=== PATIENT | female | born 1970 | race Caucasian/White ===

== ENCOUNTER 2021-08-01 11:58 | Emergency (ER) | payer MEDICAID, SELFPAY ==
--- NOTE | ~2021-08-01 | US_ITS ---
EXAMINATION: US VENOUS ULTRASOUND WITH DOPPLER LOWER EXTREMITY, LEFT CLINICAL INFORMATION: Swelling, pain COMPARISON: None TECHNIQUE: Ultrasound of the deep veins is performed from the hip to the calf with compression sonography and color and pulse Doppler assessment. Spectral analysis with color-flow imaging is performed. FINDINGS: There is normal venous compression and respiratory variation and augmented flow. The visualized common femoral vein, superficial femoral vein, profunda femoral vein, popliteal vein, and the trifurcation region shows no evidence of deep venous thrombosis. There is a small fluid collection at the medial aspect of the left knee. If the patient's symptoms persist, followup ultrasound in 5 days 7 days might be of value to exclude proximal propagation from a non-visualized calf vein. US/US venous duplex LE IMPRESSION: No DVT demonstrated in the left lower extremity. Small fluid collection at the medial aspect of the left knee.
[2021-08-01 13:11] VITALS: BP 163/91; PULSE 66; RESP 18; TEMP 36.9; O2SAT 99; BMI 27.4
--- NOTE | 2021-08-01 13:29 | ED.EXTPRO ---
HPI - Extremity Problem General Chief complaint: Extremity Problem Stated complaint: QUEST DVT L LEG Time Seen by Provider: 08/01/21 12:03 Source: patient Mode of arrival: ambulatory Limitations: no limitations History of Present Illness HPI Narrative: 51-year-old female presenting with left posterior knee pain, tenderness, and swelling that started when she woke up this morning. She reports working out yesterday and not having the pain present. 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 She denies any recent injury. She woke up this morning with pain behind the left knee and very tender to touch. She is able to fully bend and extend the knee but is having some pain with ambulation. She noticed the skin behind her knee was a little bit red concerning her for blood clot. She came into the ER for further evaluation. She denies any shortness of breath or chest pain. She does have a history of superficial blood clots she reports. MD Complaint: extremity pain and extremity swelling Onset (ago): hour(s) Pain Consistency: constant Location: left and knee Severity scale (1-10): 6 Quality: aching Radiation: none Relieving factors: immobilization and rest Exacerbating factors: palpation Associated symptoms: denies other symptoms Related Data Previous Rx's Medication Instructions Recorded ibuprofen 600 mg tablet 600 mg PO Q8H PRN #20 tab 08/01/21 Allergies Allergy/AdvReac Type Severity Reaction Status Date / Time No Known Allergies Allergy Verified 08/01/21 13:10 Review of Systems Review of Systems: Constitutional: No Fever, No Chills Gastrointestinal: No Nausea, No Vomiting Musculoskeletal: + joint pain, + Myalgias Skin: + Skin Lesions, No rash Neuro: No Weakness, No Numbness Psych: + Anxiety/Panic Heme/Lymph: No Bruising, No Lymphadenopathy PMFSH Past Medical History Medical History (Updated 08/01/21 @ 13:40 by TRAE Boateng) Migraines Social History Social History Advance Directives: No Advance Directives Information Provided: No Patient : No Physical Exam Vital Signs: Vital Signs: Last Vital Signs Temp 98.4 F 08/01/21 13:11 Pulse 66 08/01/21 13:11 Resp 18 08/01/21 13:11 BP 163/91 H 08/01/21 13:11 Pulse Ox 99 08/01/21 13:11 Body Mass Index 27.4 Appearance: Alert. Oriented X3. No acute distress. HEENT: normal inspection CVS: Normal heart rate and rhythm. Pulses normal. Respiratory: No respiratory distress. Skin: Skin warm and dry. Normal skin color. Normal skin turgor. No rashes. Extremities: Normal appearance of the left anterior knee. Full active and passive range of motion. There is tenderness in the popliteal fossa medially. Skin is slightly erythematous with tenderness, no warmth. Neurovascularly intact distally leg is warm and well perfused. Neuro: Oriented X 3. No motor deficit. No sensory deficit. Course Course Course Narrative: 51-year-old female presenting with left posterior knee pain for 1 day. She has an area of tenderness with slight erythema in the popliteal fossa. Lower extremity Dopplers did not show any evidence of DVT. It did show a small fluid collection in the medial aspect of the left knee, this is most consistent with a Benavides cyst. Will apply Kin wrap for compression and support. We discussed conservative management as well as following up with her orthopedic and primary care doctors. Work note provided. She was advised to come back to the ER or call her doctor if no improvement in her symptoms with conservative management. Critical Care Time Critical Care Time Critical Care Time: No Discharge Plan Discharge Clinical Impression: Benavides's cyst of knee Qualifiers: Laterality: left Qualified Code(s): M71.22 - Synovial cyst of popliteal space [Benavides], left knee Patient Disposition: Home, Self-Care Instructions: Bakers Cyst (ED) Additional Instructions: Your ultrasound today did not show any blood clots. It showed a small fluid collection which is most consistent with a Benavides cyst, see information provided. Recommend wearing Kin wrap for compression and support. Stay off of your leg and elevate as much as possible next 48 hours. Take prescribed ibuprofen as needed for pain. Follow-up with your orthopedic for further evaluation. If you have worsening symptoms despite these conservative measures see her doctor or come back to the ER for re-evaluation. Prescriptions: New ibuprofen 600 mg tablet 600 mg PO Q8H PRN (Reason: pain) Qty: 20 RF: 0 Stand Alone Forms: Work/School Release
== END 2021-08-01 13:49 | disposition home or self-care (01) ==
PROVIDERS: Emergency Provider Emergency Medicine; PCP Internal Medicine
DX: M71.22 Synovial cyst of popliteal space [Baker], left knee (principal); M79.605 Pain in left leg
CPT/HCPCS: 93971; 99283; 99284

== ENCOUNTER 2023-05-17 14:44 | Emergency (ER) | payer OTHER, SELFPAY ==
--- NOTE | ~2023-05-17 | CT_ITS ---
EXAMINATION: CT ABDOMEN AND PELVIS WITHOUT CONTRAST CLINICAL INFORMATION: Right lower quadrant abdominal pain COMPARISON: None available. TECHNIQUE: Multidetector volumetric imaging was performed from the superior aspect of the liver through the pubic symphysis. Sagittal and coronal reformatted images were obtained on the technologist's workstation. This CT examination was performed using dose optimization techniques as appropriate, variously including the following: *Automated exposure control *Adjustment of mA and/or kV according to patient size (this includes techniques or standardized protocols for targeted exams where dose is matched to indication/reason for exam; i.e. extremities or head) *Use of iterative reconstruction technique DLP: 670 mGy-cm FINDINGS: LUNG BASES: There is a 4 mm perifissural rounded nodule in the right middle lobe sitting on top of the minor fissure (4:21). A tiny 2 mm pleural-based right lower lobe nodule (4:84). No pleural effusions. LIVER, GALLBLADDER, AND BILIARY TREE: The liver is enlarged measuring 19.3 cm in cephalocaudad dimension. No focal hepatic lesion or biliary ductal dilatation is present. Status post cholecystectomy. PANCREAS: Unremarkable. SPLEEN: Unremarkable. ADRENAL GLANDS: Unremarkable. KIDNEYS AND URETERS: The kidneys are normal in size, shape, and attenuation. No hydronephrosis, hydroureter, or calculi seen. No perinephric stranding. BLADDER: Unremarkable. GASTROINTESTINAL TRACT: The small and large bowel are unremarkable. The appendix is unremarkable. ABDOMINAL WALL: No significant hernia is appreciated. Tiny left inguinal hernia seen containing only fat. LYMPH NODES: Normal. VASCULAR: Unremarkable. PELVIC VISCERA: Unremarkable. OSSEOUS STRUCTURES: Mild degenerative changes are present in the spine. There is grade 1 anterolisthesis of L4 upon L5. No bony destructive lesions. CT/CT abdomen pelvis wo IV con IMPRESSION: 1. A cause for the patient's right lower quadrant pain has not been found. The appendix is normal. 2. Incidental note made of mild hepatomegaly, cholecystectomy and degenerative changes in the spine with grade 1 anterolisthesis of L4 upon L5. 3. Incidental note made of 4 mm right middle lobe lung nodule and 2 mm right lower lobe nodule. 2017 Fleischner Society Recommendations for Lung Nodule(s): Follow up based on size (average of long- and short-axis diameters). Use most suspicious nodule for followup. Multiple Solid lung nodules < 6 mm: Follow up management based on most suspicious nodule. In a low-risk patient, no routine follow-up imaging is recommended. In a high-risk patient, a non-contrast Chest CT at 12 months is optional. If performed and the nodule is stable at 12 months, no further follow up is recommended. These guidelines do not apply to patients younger than 35 years, immunocompromised patients, and patients with cancer. F/u in patients with significant comorbidities as clinically warranted. For lung cancer screening, adhere to Lung-RADS guidelines. Reference: Radiology. 2017 [place]; 284(1):228-243
[2023-05-17 15:25] VITALS: BP 147/92; PULSE 72; RESP 18; TEMP 36.9; O2SAT 99; BMI 29.1
--- NOTE | 2023-05-17 15:25 | ED.ABDPAIN ---
HPI - Abdominal Pain General Chief Complaint: Abdominal Pain Stated Complaint: Lower abd pain Time Seen by Provider: 05/17/23 16:05 Source: patient, RN notes reviewed and old records reviewed Mode of arrival: ambulatory Limitations: no limitations History of Present Illness HPI narrative: 53-year-old female presents for evaluation of lower abdominal pain. Patient reports that she has had pain for the last 4 or 5 days. Her pain is mostly in the right lower abdomen She had associated diarrhea yesterday. Denies any black or bloody stool Her pain is currently a 7/10. Denies any fevers or chills She has a past surgical history that includes a right inguinal hernia repair, hysterectomy, cholecystectomy Related Data Previous Rx's Medication Instructions Recorded ibuprofen 600 mg tablet 600 mg PO Q8H PRN pain #20 tabs 08/01/21 methocarbamol 500 mg tablet 500 mg PO QID muscle spasm #15 tabs 05/17/23 Allergies Allergy/AdvReac Type Severity Reaction Status Date / Time morphine AdvReac Headache Verified 05/17/23 15:25 Review of Systems Constitutional: Denies chills, Denies fever(s), Denies headache(s) and Denies malaise Denies headache(s) Cardiovascular: Denies chest pain Respiratory: Denies cough Gastrointestinal: Reports abdominal pain, Denies melena, Denies hematochezia, Reports diarrhea, Denies nausea and Denies vomiting Genitourinary: Denies dysuria and Reports urinary hesitancy Musculoskeletal: Reports back pain Skin/Breast: Denies erythema Denies headache(s) [facility] Past Medical History Medical History (Updated 05/17/23 @ 20:23 by Pradeep Steel) Migraines Social History Social History Advance Directives: No Advance Directives Information Provided: No Physical Exam ED Vital Signs: Vital Signs - 24 hr 05/17/23 15:25 05/17/23 19:54 Temperature 98.4 F 98.3 F Pulse Rate 72 63 Respiratory Rate 18 18 Blood Pressure 147/92 H 129/89 Pulse Oximetry 99 97 Oxygen Delivery Method Room Air BMI result Body Mass Index 29.1 Const General: healthy appearing, comfortable, no acute distress, alert and awake Nutritional Appearance: well nourished Orientation/consciousness: patient oriented x3 HENMT Head: Yes normocephalic and Yes atraumatic Eyes Eyelids: Yes eyelids normal Conjunctivae: conjunctivae normal Sclerae: sclerae normal Corneas: corneas normal Pupils: Equal, round and reactive pupils present EOM: EOMs intact bilaterally Neck Neck: Yes full ROM Resp Effort & Inspection: normal respiratory effort, able to speak in complete sentences and not labored GI Inspection: No distended Palpation (GI): Soft to palpation, not firm, Tenderness to palpation present (GI) in the RLQ, Guarding due to palpation present (GI) and not rigid Auscultation: normoactive bowel sounds Skin General skin exam: no rashes or lesions noted and elasticity normal Neuro General: patient oriented x3 Cranial nerves: Yes Equal, round and reactive pupils present and Yes Bilaterally intact EOM present Cognition (Neuro): normal cognition Extrem Other: Moving all extremities well without any obvious deformities Course Course Course Narrative: RME - 53 y/o female with history of migraines, hx cholecystectomy, hx right inguinal hernia repair, hx hysterectomy who is presenting to the ER for evaluation of RLQ abdominal pain for the last 5 days, progressively worsening. Has shooting pains down into the right pelvic area. +diarrhea. No fever, chills, vomiting. Increased urinary frequency with incomplete bladder emptying sensation. +tenderness at McBurney's point on exam. Plan: labs and CT scan Reevaluation(s) Reevaluation #1: Discussed patient's workup with her. She will be discharged with methocarbamol for her pain. Time: 20:21 Medical Decision Making Medical Decision Making [facility] Narrative: A 3-year-old female presents for evaluation of right lower quadrant abdominal pain/tenderness on exam. She does have rebound tenderness with guarding. No abdominal distention. Her abdomen remained soft. Her given her level discomfort with a CT scan of the abdomen pelvis. Plan for labs, UA as well. Less likely be obstructive pathology is the patient has had some bowel movements over last couple of days Differential Diagnosis Differential Diagnoses: The differential diagnosis associated with the presentation includes Acute appendicitis Obstructive uropathy Small bowel obstruction Ileus Constipation Muscle strain Lab Data [facility] Lab Attestation statement: I reviewed the patient's lab results. Steatosis with a white count of 6.1, and no left shift. no significant anemia. Platelet count 200 sodium normal at 140, potassium normal at 4.5. Chloride normal at 107 CO2 slightly low at 21, BUN of 17 and a creatinine of 0.72 05/17/23 15:36 05/17/23 15:36 Labs: Lab Results 05/17/23 05/17/23 05/17/23 Range/Units 15:36 15:36 20:01 WBC 6.1 (4.8-10.8) X10*3/uL RBC 4.50 (4.20-5.50) X10*6/uL Hgb 14.2 (12.0-16.0) g/dl Hct 41.2 (37.0-47.0) % MCV 91.6 (80.0-98.0) fL MCH 31.6 (27.0-33.0) pg MCHC 34.5 (31.0-35.0) g/dl RDW 12.9 (11.0-16.0) % Plt Count 230 (160-400) X10*3/uL MPV 9.9 (9.4-12.3) fL Immature Gran % (Auto) 0.2 (0.0-0.4) % Neut % (Auto) 58.3 (45-73) % Lymph % (Auto) 29.3 (20-40) % Cassia % (Auto) 8.7 (2-11) % Eos % (Auto) 2.3 (0-4) % Baso % (Auto) 1.2 (0-2) % Lymph # (Auto) 1.8 (1.2-4.9) X10*3/uL Cassia # (Auto) 0.5 (0.1-1.2) X10*3/uL Eos # (Auto) 0.1 (0.0-0.4) X10*3/uL Baso # (Auto) 0.1 (0.0-0.2) X10*3/uL Abs Immat Gran (auto) 0.01 (0.00-0.03) X10*3/uL Absolute Neuts (auto) 3.5 (2.0-8.3) x10*3/uL Absolute Nucleated RBC 0.000 (0.0-0.012) X10*3/uL Nucleated RBC % (auto) 0.0 (0.0-0.2) /100WBC Sodium 140 (135-145) mmol/L Potassium 4.5 (3.3-5.1) mmol/L Chloride 107 (96-108) mmol/L Carbon Dioxide 21 L (22-29) mmol/L Anion Gap 17 (12-20) BUN 17 H (9-16) mg/dL Creatinine 0.72 (0.5-1.4) mg/dL Estim Creat Clear Calc 96.2 Estimated GFR > 60 Random Glucose 96 (60-115) mg/dL Calcium 10.2 (8.4-10.2) mg/dL Magnesium 1.9 (1.6-2.6) mg/dL Total Bilirubin 0.6 (0.0-1.0) mg/dL Direct Bilirubin 0.2 (0.0-0.5) mg/dL AST 21 (5-31) U/L ALT 17 (0-31) U/L Alkaline Phosphatase 70 (39-117) U/L Total Protein 7.3 (6.5-8.0) g/dL Albumin 4.2 (3.5-5.0) g/dL Urine Color Yellow Urine Appearance Clear Urine pH 6.0 (5.0-9.0) Ur Specific [place] <= 1.005 (1.005-1.025) Urine Protein Negative (Neg-Trace) mg/dL Urine Glucose (UA) Negative (Negative) mg/dL Urine Ketones Negative (Negative) mg/dL Urine Blood Negative (Negative) Urine Nitrite Negative (Negative) Ur Leukocyte Esterase Negative (Negative) Radiology Impression Discussion of test interpretation with radiology: I have reviewed the radiologist's reading. Radiologist Impression: No acute findings to explain the patient's pain Medications Administered Discontinued Medications Generic Name Dose Route Start Last Admin Trade Name Freq PRN Reason Stop Dose Admin Sodium Chloride 1,000 mls @ 999 mls/hr 05/17/23 16:30 05/17/23 18:04 Ns IV 05/17/23 17:30 Infused .Q1H1M GLO Infusion Ketorolac Tromethamine 30 mg 05/17/23 16:25 05/17/23 16:53 Ketorolac Tromethamine 30 Mg/Ml Vial IVPUSH 05/17/23 16:26 30 mg ONCE ONE Administration Methocarbamol 750 mg 05/17/23 19:48 05/17/23 19:58 Methocarbamol 750 Mg Tablet PO 05/17/23 19:49 750 mg ONCE ONE Administration Ondansetron HCl 4 mg 05/17/23 16:25 05/17/23 16:53 Ondansetron Hcl 4 Mg/2 Ml Vial IVPUSH 05/17/23 16:26 4 mg ONCE ONE Administration Discharge Plan Discharge Clinical Impression: Abdominal pain, right lower quadrant Patient Disposition: Home, Self-Care Instructions: Abdominal Pain (ED) Additional Instructions: Your workup in the emergency department today was reassuring. Includes your blood work, CT scan. There was no significant cause of your abdominal pain identified. Her pain may be related to a muscle strain Your urine sample was clear as well Use ibuprofen/Tylenol as needed for pain Follow-up with your primary doctor You may use methocarbamol as needed for muscle spasm This may make you sleepy, do not drink alcohol or drive after taking it Prescriptions: New methocarbamol 500 mg tablet 500 mg PO QID Qty: 15 0RF No Action ibuprofen 600 mg tablet 600 mg PO Q8H PRN (Reason: pain) Qty: 20 0RF
[2023-05-17 16:11] LABS: MANUAL DIFF FLAG NO
[2023-05-17 16:33] LABS: Alanine Aminotransferase 17 U/L (0-31); Albumin Level 4.2 g/dL (3.5-5.0); Alkaline Phosphatase 70 U/L (39-117); Anion Gap 17 (12-20); Aspartate Amino Transferase 21 U/L (5-31); Bilirubin Direct 0.2 mg/dL (0.0-0.5); Bilirubin Total 0.6 mg/dL (0.0-1.0); Blood Urea Nitrogen 17 mg/dL (9-16); Calcium 10.2 mg/dL (8.4-10.2); Carbon Dioxide 21 mmol/L (22-29); Chloride 107 mmol/L (96-108); Creatinine Clr Calc Pharmacy 96.2; Estimated Glomerular Filt Rate > 60; Glucose Random 96 mg/dL (60-115); Magnesium 1.9 mg/dL (1.6-2.6); Potassium 4.5 mmol/L (3.3-5.1); Sodium 140 mmol/L (135-145); Total Protein 7.3 g/dL (6.5-8.0)
[2023-05-17 16:35] LABS: Basophils Absolute Auto 0.1 X10*3/uL (0.0-0.2); Basophils Percent Auto 1.2 % (0-2); Eosinophils Absolute Auto 0.1 X10*3/uL (0.0-0.4); Eosinophils Percent Auto 2.3 % (0-4); Hematocrit 41.2 % (37.0-47.0); Hemoglobin 14.2 g/dl (12.0-16.0); Imm Gran Abs Auto 0.01 X10*3/uL (0.00-0.03); Imm Gran Pct Auto 0.2 % (0.0-0.4); Lymphocytes Absolute Auto 1.8 X10*3/uL (1.2-4.9); Lymphocytes Percent Auto 29.3 % (20-40); Mean Corpuscular HGB Conc 34.5 g/dl (31.0-35.0); Mean Corpuscular Hemoglobin 31.6 pg (27.0-33.0); Mean Corpuscular Volume 91.6 fL (80.0-98.0); Mean Platelet Volume 9.9 fL (9.4-12.3); Monocytes Absolute Auto 0.5 X10*3/uL (0.1-1.2); Monocytes Percent Auto 8.7 % (2-11); Neutrophils Absolute Auto 3.5 x10*3/uL (2.0-8.3); Neutrophils Percent Auto 58.3 % (45-73); Platelet Count 230 X10*3/uL (160-400); Red Cell Distribution Width 12.9 % (11.0-16.0); White Blood Count 6.1 X10*3/uL (4.8-10.8)
[2023-05-17] MEDS: ondansetron HCL 4 MG/2 ML VIAL IVPUSH (16:53)
[2023-05-17] MEDS: Ketorolac Tromethamine 30 MG/ML VIAL IVPUSH (16:53)
[2023-05-17] MEDS: 0.9 % Sodium Chloride 1,000 ML 999 ML IV (16:54)
--- NOTE | 2023-05-17 18:52 | PC.NURSE ---
patient resting in bed, respirations equal and unlabored. pt awaiting test results for dispo
[2023-05-17 19:54] VITALS: BP 129/89; PULSE 63; RESP 18; TEMP 36.8; O2SAT 97
[2023-05-17] MEDS: methocarbamoL 750 MG TABLET PO (19:58)
[2023-05-17 20:11] LABS: Appearance Urine Clear; Color Urine Yellow; Glucose Urine UA Negative (Negative); Leukocyte Esterase Urine Negative (Negative); Nitrite Urine Negative (Negative); Specific Gravity - Urine <= 1.005 (1.005-1.025); Urine Blood Negative (Negative); Urine Ketones Negative (Negative); Urine Protein Negative (Neg-Trace)
== END 2023-05-17 20:47 | disposition home or self-care (01) ==
PROVIDERS: Physician Assistant; Emergency Provider Internal Medicine; PCP Internal Medicine
DX: R10.31 Right lower quadrant pain (principal); Z90.710 Acquired absence of both cervix and uterus; Z90.49 Acquired absence of other specified parts of digestive tract
CPT/HCPCS: 36415; 74176; 80048; 80076; 81003; 83735; 85025; 96361; 96374; 96375; 99284; 99285; J1885; J2405

== ENCOUNTER 2025-03-12 12:34 | Emergency (ER) | payer OTHER, SELFPAY ==
--- NOTE | ~2025-03-12 | CT_ITS ---
CLINICAL HISTORY: L lower rib pain s p fall CT chest without contrast Comparison: None Findings: The heart is normal size. The visualized thyroid and mediastinum are unremarkable. No consolidation or effusion. The visualized upper abdomen is unremarkable. No acute fractures. IMPRESSION: 1. No acute disease of the chest. No acute fractures. This document has been electronically signed by: Ab Childers MD on 03/12/2025 20:23:11
--- NOTE | ~2025-03-12 | XR_ITS ---
EXAMINATION: XR RIBS, LEFT CLINICAL INFORMATION: L lower rib/back pain COMPARISON: None available. TECHNIQUE: PA view of the chest, and 3 views of the left ribs were obtained. FINDINGS: Lungs are clear. No consolidation, pneumothorax, or pleural effusion. The cardiomediastinal silhouette and pulmonary vasculature are normal. Osseous structures demonstrate no definitive rib fracture or focal rib abnormality. Mild scoliosis and degenerative spondylosis of the spine. Surgical anchors in the right humeral head. Cholecystectomy clips noted. XR/XR ribs LT min 3V w CXR1V IMPRESSION: 1. No active pulmonary disease. 2. No acute or focal rib abnormalities identified. Electronically signed by: Iron Vela MD 03/12/2025 01:59 PM EDT
--- NOTE | ~2025-03-12 | CT_ITS ---
CLINICAL HISTORY: LUQ abd pain. L lower rib pain CT abdomen and pelvis without contrast Comparison: CT/AL/SR - CT ABDOMEN PELVIS WO IV CON - 05/17/23 17:01 EDT Findings: No consolidation or effusion. Status post cholecystectomy. Solid organs are within normal limits. No bowel obstruction, pneumoperitoneum, or pneumatosis. Pelvic contents unremarkable. Normal appendix. The bones are intact. Mild multilevel spondylosis of the thoracolumbar spine with grade 1 anterolisthesis of L5 on S1 on degenerative basis. Transitional anatomy with 6 lumbar type vertebrae likely lumbarization of S1. IMPRESSION: No acute findings. Status post cholecystectomy. No acute fracture. Mild multilevel spondylosis with grade 1 anterolisthesis of L5. 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 This document has been electronically signed by: Ab Childers MD on 03/12/2025 20:31:30
[2025-03-12 13:09] VITALS: BP 152/98; PULSE 75; RESP 18; TEMP 36.5; O2SAT 99; BMI 61.6
--- NOTE | 2025-03-12 13:09 | ED_ITS ---
HPI - Back Pain/Injury General Chief Complaint: Back Pain/Injury Stated Complaint: back pain post fall 1 week ago Time Seen by Provider: 03/12/25 18:09 Source: patient, RN notes reviewed and old records reviewed Mode of arrival: ambulatory History of Present Illness ED Provider: Mary Denny PA-C HPI Narrative: [id number] with no significant PMHx presenting to the ED c/o left lower rib/side pain s/p mechanical trip & fall off [place] sto[place] 1.5 weeks ago. Admits pain is worse with deep breathing & movement. Denies sx prior to fall, denies head trauma/LOC or AC use, SOB, N/V, hematuria/dysuria Related Data Previous Rx's ?Medication ?Instructions ?Recorded ibuprofen 600 mg tablet 600 mg PO Q8H PRN pain #20 tabs 08/01/21 methocarbamol 500 mg tablet 500 mg PO QID muscle spasm #15 tabs 05/17/23 acetaminophen 500 mg tablet 500 mg PO Q6H PRN fever or pain 03/12/25 (Tylenol Extra Strength) #14 tabs cyclobenzaprine 5 mg tablet 5 mg PO Q8H PRN pain (scale score 03/12/25 7-10) 5 days #14 tabs lidocaine 5 % topical patch 1 patch topical DAILY PRN pain #30 03/12/25 (Lidoderm) ea naproxen 500 mg tablet 500 mg PO BID PRN pain 10 days #20 03/12/25 tabs Allergies Allergy/AdvReac Type Severity Reaction Status Date / Time morphine AdvReac Headache Verified 03/12/25 13:09 Review of Systems 2 Review of Systems: Yes all other systems are reviewed and are negative Constitutional: Constitutional: Reports as per HPI [facility] Past Medical History Attestation statement: The following information was validated with the patient. Source: old records reviewed Medical History Migraines Social History Social History Alcohol intake: never Smoked in Last 30 Days: No Use of substances other than those prescribed or required for medical reasons: No Advance Directives: No Advance Directives Information Provided: Yes Patient : No Physical Exam 2 Vital Signs: Vital Signs: Last Vital Signs Temp 98.3 F 03/12/25 21:14 Pulse 56 03/12/25 21:14 Resp 18 03/12/25 21:14 BP 156/91 H 03/12/25 21:14 Pulse Ox 99 03/12/25 19:21 O2 Del Method Room Air 03/12/25 19:21 BMI result Body Mass Index 61.6 Const: General: cooperative, healthy appearing and no acute distress O rientation/consciousness: patient oriented x3 Limitations: no limitations HEENT: Head: Yes normal to inspection and Yes atraumatic Ears: hearing grossly normal bilaterally General nose exam: Normal external nose present Face and sinus: Yes normal facial exam Eyes: General: appearance normal, both eyes and all related structures EOM: EOMs intact bilaterally Neck: Neck: Yes normal visual inspection and Yes no meningeal signs Chest: Other: +left lower posterior lateral reproducib le rib ttp. No erythema/ecchymosis/flail chest Chest palpation & inspection: normal inspection of the chest, no crepitus and tenderness Resp: Effort & Inspection: normal respiratory effort and no respiratory distress Auscultation: clear to auscultation bilaterally Cardio: Rate: regular rate Heart sounds: S1 normal heart sound present and S2 normal heart sound present GI: Inspection: Yes normal to inspection Palpation (GI): Soft to palpation, Tenderness to palpation present (GI) in the LUQ; with no rebound tenderness, no guarding and not rigid : General: Yes no CVA tenderness Back/Spine/Pelvis: Other: No midline cervical/thoracic/lumbar spinous tenderness/step-off or deformity Back: no CVA tenderness Skin: Rashes: no rashes Wounds: no wounds Neuro: General: patient oriented x3, tone normal, moves all extremities and no meningeal signs Cranial nerves: Yes CN's II-XII intact bilaterally Gait exam (Neuro): Normal gait present Extrem: General: Yes normal to inspection Course Course Course Narrative: This is a Rapid Medical Exam performed in triage by Mary Denny PA-C. Full HPI, ROS and PE to be performed by primary ED provider. 55 yo F presenting to the ED c/o left low/mid back pain s/p fall off front stoop 1.5wks ago, denies head trauma/loc, denies AC use. pain worse with moving/breathing. denies urinary sx PE: +reproducible L lower posterior lateral rib ttp. no flail chest Plan: XR, pain control 1843--XR ribs LT min 3V w CXR1V IMPRESSION: 1. No active pulmonary disease. 2. No acute or focal rib abnormalities identified. -Labs reassuring CT abdomen pelvis wo IV con IMPRESSION: No acute findings. Status post cholecystectomy. No acute fracture. Mild multilevel spondylosis with grade 1 anterolisthesis of L5. 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 CT chest wo IV con IMPRESSION: 1. No acute disease of the chest. No acute fractures. > reports mild symptomatic improvement after medications given in the ED -2099--ED care transferred to [facility] pending UA. Anticipated dispo Results discussed with patient including worrisome signs and symptoms and strict return precautions, and when to return to the emergency department. They verbalized understanding and feel safe for discharge at this time. Medications Administered Discontinued Medications Generic Name Dose Route Start Last Admin Trade Name Freq PRN Reason Stop Dose Admin Fentanyl 25 mcg 03/12/25 18:15 03/12/25 18:40 Fentanyl Citrate/Pf 100 Mcg/2 Ml Vial IVPUSH 03/12/25 18:16 25 mcg ONCE ONE Administration Protocol Acetaminophen 1,000 mg in 100 mls @ 400 mls/hr 03/12/25 18:15 03/12/25 18:55 Ofirmev IV 03/12/25 18:29 Infused ONCE ONE Infusion Medical Decision Making Medical Decision Making MDM Narrative: [id number]-female with no significant PMHx presenting to the ED c/o left lower rib/side pain s/p mechanical trip & fall off front stoop 1.5 weeks ago. Admits pain is worse with deep breathing & movement. On exam vital signs stable, NAD, appears uncomfortable, reproducible left-sided lower posterior lateral rib tenderness to palpation. No flail chest, rash, or ecchymosis/erythema. Abdomen is soft with LUQ tenderness. Concern for rib fracture vs contusion vs splenic injury/intra-abdominal injury. Lower suspicion for ACS or dissection or PE Plan: Rib x-ray, labs, UA, CT chest/abdomen/pelvis. Patient allergic to IV contrast Please refer to course for remaining clinical decision making, interpretation of labs/imaging results, and discussions with consultants and/or family members. Differential Diagnosis Differential Diagnoses: The differential diagnosis associated with the presentation includes As above Admission/Observation Consideration of admission/observation: Escalation of care including admission/observation considered Lab Data MDM Lab Attestation statement: I reviewed the patient's lab results. 03/12/25 18:26 03/12/25 18:50 Labs: Lab Results 03/12/25 03/12/25 03/12/25 Range/Units 18:26 18:50 20:54 WBC 6.5 (4.8-10.8) X10*3/uL RBC 4.59 (4.20-5.50) X10*6/uL Hgb 14.8 (12.0-16.0) g/dl Hct 42.5 (37.0-47.0) % MCV 92.6 (80.0-98.0) fL MCH 32.2 (27.0-33.0) pg MCHC 34.8 (31.0-35.0) g/dl RDW 14.1 (11.0-16.0) % Plt Count 188 (160-400) X10*3/uL MPV 9.2 L (9.4-12.3) fL Immature Gran % (Auto) 0.2 (0.0-0.4) % Neut % (Auto) 63.0 (45-73) % Lymph % (Auto) 28.1 (20-40) % [place] % (Auto) 5.9 (2-11) % Eos % (Auto) 1.7 (0-4) % Baso % (Auto) 1.1 (0-2) % Lymph # (Auto) 1.8 (1.2-4.9) X10*3/uL [place] # (Auto) 0.4 (0.1-1.2) X10*3/uL Eos # (Auto) 0.1 (0.0-0.4) X10*3/uL Baso # (Auto) 0.1 (0.0-0.2) X10*3/uL Abs Immat Gran (auto) 0.01 (0.00-0.03) X10*3/uL Absolute Neuts (auto) 4.1 (2.0-8.3) x10*3/uL Absolute Nucleated RBC 0.000 (0.0-0.012) X10*3/uL Nucleated RBC % (auto) 0.0 (0.0-0.2) /100WBC Sodium 137 (135-145) mmol/L Potassium 3.6 (3.3-5.1) mmol/L Chloride 106 (96-108) mmol/L Carbon Dioxide 24 (22-29) mmol/L Anion Gap 11 L (12-20) BUN 16 (9-16) mg/dL Creatinine 0.60 (0.5-1.4) mg/dL Estim Creat Clear Calc 173.6 Estimated GFR > 60 Random Glucose 84 (60-115) mg/dL Calcium 8.7 D (8.4-10.2) mg/dL Magnesium 2.0 (1.6-2.6) mg/dL Total Bilirubin 0.5 (0.0-1.0) mg/dL Direct Bilirubin 0.2 (0.0-0.5) mg/dL AST 18 (5-31) U/L ALT 17 (0-31) U/L Alkaline Phosphatase 66 (39-117) U/L Total Protein 6.3 L (6.5-8.0) g/dL Albumin 3.8 (3.5-5.0) g/dL Lipase 26 (8-78) U/L Urine Color Yellow Urine Appearance Cloudy Urine pH 7.0 (5.0-9.0) Ur Specific [place] 1.015 (1.005-1.025) Urine Protein Negative (Neg-Trace) mg/dL Urine Glucose (UA) Negative (Negative) mg/dL Urine Ketones Negative (Negative) mg/dL Urine Blood Negative (Negative) Urine Nitrite Negative (Negative) Ur Leukocyte Esterase Negative (Negative) Independent Interpretation I performed an independent interpretation of an: Plain X-Ray and CT Scan Radiology Impression Discussion of test interpretation with radiology: I have reviewed the radiologist's reading. External Record Review External record reviewed: Inpatient record, Office record, Outpatient record, Prior outpatient labs, Prior outpatient radiology, Primary care record and Outside ED record Tests considered The following testing was considered but not selected: As above Prescription Management I considered prescription management with: Pain Medication Chronic Conditions Patient?s care impacted by: Other Social Determinants Patient?s care significantly limited by Social Determinants of Health including: Other Social Determinant of Health Discharge Plan Discharge Clinical Impression: Contusion of rib Patient Disposition: Home, Self-Care Instructions: Rib Contusion (ED) Additional Instructions: Your blood work and CAT scans are reassuring. You likely bruised your ribs Ice painful areas Flexeril is a muscle relaxer, take at night as it makes you drowsy, do not drive, drink alcohol, or operate machinery while taking it Naproxen as an anti-inflammatory / pain medication, take with food Lidoderm patches are numbing patches, apply to painful area In addition take Tylenol at home If symptoms persist or worsen, pain becomes unbearable, you developed urinary retention or incontinence, or weakness return to the ED Prescriptions: New acetaminophen [Tylenol Extra Strength] 500 mg tablet 500 mg PO Q6H PRN (Reason: fever or pain) Qty: 14 0RF lidocaine [Lidoderm] 5 % adhesive patch,medicated 1 patch topical DAILY MDD remove after 12 hours PRN (Reason: pain) Qty: 30 0RF Rx Instructions: leave on most painful area for up to 12 hrs naproxen 500 mg tablet 500 mg PO BID PRN (Reason: pain) 10 Days Qty: 20 0RF cyclobenzaprine 5 mg tablet 5 mg PO Q8H PRN (Reason: pain (scale score 7-10)) 5 Days Qty: 14 0RF No Action ibuprofen 600 mg tablet 600 mg PO Q8H PRN (Reason: pain) Qty: 20 0RF methocarbamol 500 mg tablet 500 mg PO QID Qty: 15 0RF Referrals: Kavitha Messina MD [Primary Care Provider] - 3 days Interventions: ED Discharge Assessment Last Done: 03/12/25 21:14 Discharge Date/Time: 03/12/25 21:15 Print Language: Martiniquais
[2025-03-12 18:32] LABS: MANUAL DIFF FLAG NO
[2025-03-12] MEDS: Acetaminophen 1,000 MG/100 ML PIGGYBACK 400 MG IV (18:40)
[2025-03-12] MEDS: fentaNYL citrate/PF 100 MCG/2 ML VIAL 25 MCG IVPUSH (18:40)
[2025-03-12 18:56] LABS: Basophils Absolute Auto 0.1 X10*3/uL (0.0-0.2); Basophils Percent Auto 1.1 % (0-2); Eosinophils Absolute Auto 0.1 X10*3/uL (0.0-0.4); Eosinophils Percent Auto 1.7 % (0-4); Hematocrit 42.5 % (37.0-47.0); Hemoglobin 14.8 g/dl (12.0-16.0); Imm Gran Abs Auto 0.01 X10*3/uL (0.00-0.03); Imm Gran Pct Auto 0.2 % (0.0-0.4); Lymphocytes Absolute Auto 1.8 X10*3/uL (1.2-4.9); Lymphocytes Percent Auto 28.1 % (20-40); Mean Corpuscular HGB Conc 34.8 g/dl (31.0-35.0); Mean Corpuscular Hemoglobin 32.2 pg (27.0-33.0); Mean Corpuscular Volume 92.6 fL (80.0-98.0); Mean Platelet Volume 9.2 fL (9.4-12.3); Monocytes Absolute Auto 0.4 X10*3/uL (0.1-1.2); Monocytes Percent Auto 5.9 % (2-11); Neutrophils Absolute Auto 4.1 x10*3/uL (2.0-8.3); Platelet Count 188 X10*3/uL (160-400); Red Blood Count 4.59 X10*6/uL (4.20-5.50); Red Cell Distribution Width 14.1 % (11.0-16.0); White Blood Count 6.5 X10*3/uL (4.8-10.8)
[2025-03-12 19:08] LABS: Alanine Aminotransferase 17 U/L (0-31); Albumin Level 3.8 g/dL (3.5-5.0); Alkaline Phosphatase 66 U/L (39-117); Anion Gap 11 (12-20); Aspartate Amino Transferase 18 U/L (5-31); Bilirubin Direct 0.2 mg/dL (0.0-0.5); Bilirubin Total 0.5 mg/dL (0.0-1.0); Blood Urea Nitrogen 16 mg/dL (9-16); Calcium 8.7 mg/dL (8.4-10.2); Carbon Dioxide 24 mmol/L (22-29); Chloride 106 mmol/L (96-108); Creatinine Clr Calc Pharmacy 173.6; Estimated Glomerular Filt Rate > 60; Glucose Random 84 mg/dL (60-115); Lipase 26 U/L (8-78); Potassium 3.6 mmol/L (3.3-5.1); Sodium 137 mmol/L (135-145); Total Protein 6.3 g/dL (6.5-8.0)
[2025-03-12 19:21] VITALS: BP 153/90; PULSE 53; RESP 15; TEMP 36.8; O2SAT 99
--- NOTE | 2025-03-12 20:45 | PC.NURSE ---
Pt. in bed, eating sandwich. Provider at bedside.
[2025-03-12 20:55] VITALS: BP 156/91; PULSE 56; RESP 18
[2025-03-12 21:04] LABS: Appearance Urine Cloudy; Color Urine Yellow; Glucose Urine UA Negative (Negative); Leukocyte Esterase Urine Negative (Negative); Nitrite Urine Negative (Negative); Specific Gravity - Urine 1.015 (1.005-1.025); Urine Blood Negative (Negative); Urine Ketones Negative (Negative); Urine Protein Negative (Neg-Trace)
[2025-03-12 21:14] VITALS: BP 156/91; PULSE 56; RESP 18; TEMP 36.8
== END 2025-03-12 21:15 | disposition home or self-care (01) ==
PROVIDERS: Physician Assistant; Emergency Provider Emergency Medicine; PCP Internal Medicine
DX: R07.1 Chest pain on breathing (principal); M54.50 Low back pain, unspecified; M54.6 Pain in thoracic spine; R10.2 Pelvic and perineal pain; Z79.899 Other long term (current) drug therapy
CPT/HCPCS: 36415; 71101; 71250; 74176; 80048; 80076; 81003; 83690; 83735; 85025; 96374; 96375; 99284; 99285; J0131; J3010

== ENCOUNTER → 2025-03-12 13:10 | Outpatient (BNV) | payer OTHER, SELFPAY | PROVIDERS: PCP Internal Medicine; Visit Provider Radiology Diagnostic Radiology | DX: R10.12 Left upper quadrant pain (principal); R07.81 Pleurodynia; M54.9 Dorsalgia, unspecified | CPT/HCPCS: 71101; 71250; 74176 ==